=== PATIENT | female | born 1985 | race Caucasian/White ===

== ENCOUNTER 2020-11-17 23:40 | Emergency (ER) | payer SELFPAY ==
--- NOTE | 2020-11-18 | NUR ---
ED Nurse Note: patient refused to be triaged, patient sat down in chair and stated that she is fine and would like to not be seen, states that she will just go to her doctors tomorrow.
--- NOTE | 2020-11-18 00:05 | Emergency Room Report ---
History of Present Illness General Chief Complaint: To Be Triaged Present Illness HPI Patient not found in waiting room for triage. Left without being seen. I had no interaction with this patient. Medical Decision Making Diagnostic Impression: Primary Impression: Patient left without being seen ER Course Patient left without being seen. I had no interaction with this patient. Disposition: LEFT W/OUT BEING SEEN Condition: Unknown Junaid Carpenter MD Nov 18, 2020 00:05
== END 2020-11-18 | disposition left against medical advice (07) ==
LOC: EMR 23:52
DX: S09.90XA Unspecified injury of head, initial encounter (principal); Z53.21 Procedure and treatment not carried out due to patient leaving prior to being seen by health care provider